=== PATIENT | female | born 1995 | race Two or more races ===

== ENCOUNTER 2021-05-01 23:15 | Emergency (ER) | payer MEDICAID ==
[~2021-05-01] VITALS: Ht 160 cm; Wt 96.0 kg
[2021-05-01 23:33] VITALS: BP 139/88
[2021-05-01] MEDS ORDERED: HYDROCODONE/ACETAMINOPHEN 5/325MG TABLET PO ONE (23:45)
[2021-05-02] MEDS ORDERED: NAPR-681 MT (01:36)
== END 2021-05-02 02:20 | disposition home or self-care (01) ==
LOC: ER 23:15
DX: M79.81 Nontraumatic hematoma of soft tissue (principal)
CPT/HCPCS: 73030; 73090; 81025; 99284